=== PATIENT | female | born 1990 | race Two or more races ===

== ENCOUNTER 2018-03-24 22:33 | Emergency (ER) | payer OTHER ==
[~2018-03-24] VITALS: Ht 162.6 cm; Wt 76.7 kg
[2018-03-25] MEDS ORDERED: ALBUTEROL2.5 MG/3 M IH (03:17)
[2018-03-25] MEDS ORDERED: ZYRTEC10 MG PO (03:17)
== END 2018-03-25 03:31 | disposition home or self-care (01) ==
LOC: ER 22:33
DX: R06.02 Shortness of breath (principal); R50.9 Fever, unspecified

== ENCOUNTER 2018-07-26 14:45 | Inpatient (IN) | payer OTHER ==
[~2018-07-26] VITALS: Ht 162.6 cm; Wt 2.3 kg
[~2018-07-26 14:45] MED LIST: ALBUTEROL2.5 MG/3 M IH; ZYRTEC10 MG PO
[2018-07-26] MEDS ORDERED: OBSTETRIX DHA1 EACH PO (15:39)
[2018-07-26] MEDS ORDERED: INTEGRA CAPSUL1 EACH PO (15:40)
[2018-07-26] MEDS ORDERED: FOLIC ACID0.4 MG PO (15:40)
== END 2018-08-02 11:30 | disposition home or self-care (01) | DRG 805 ==
LOC: LDR 14:45 → OB/GYN 14:45
PROVIDERS: ADMIT Specialist
PROC: 4A1HXCZ Monitoring of Products of Conception, Cardiac Rate, External Approach (ICD-10-PCS; 2018-07-26)
PROC: BY4FZZZ Ultrasonography of Third Trimester, Single Fetus (ICD-10-PCS; 2018-07-26)
PROC: BW4GZZZ Ultrasonography of Pelvic Region (ICD-10-PCS; 2018-07-27)
PROC: 10E0XZZ Delivery of Products of Conception, External Approach (ICD-10-PCS; principal; 2018-07-30)
PROC: 0HQ9XZZ Repair Perineum Skin, External Approach (ICD-10-PCS; 2018-07-30)
PROC: 3E033VJ Introduction of Other Hormone into Peripheral Vein, Percutaneous Approach (ICD-10-PCS; 2018-07-30)
PROC: 3E0P7VZ Introduction of Hormone into Female Reproductive, Via Natural or Artificial Opening (ICD-10-PCS; 2018-07-30)
PROC: BW40ZZZ Ultrasonography of Abdomen (ICD-10-PCS; 2018-08-01)
DX: O70.1 Second degree perineal laceration during delivery (principal); O60.14X0 Preterm labor third trimester with preterm delivery third trimester, not applicable or unspecified; Z37.0 Single live birth; O14.03 Mild to moderate pre-eclampsia, third trimester; N13.39 Other hydronephrosis; O13.3 Gestational [pregnancy-induced] hypertension without significant proteinuria, third trimester; O99.013 Anemia complicating pregnancy, third trimester; R74.0 Nonspecific elevation of levels of transaminase and lactic acid dehydrogenase [LDH]; Z3A.33 33 weeks gestation of pregnancy; O99.89 Other specified diseases and conditions complicating pregnancy, childbirth and the puerperium